=== PATIENT | male | born 1990 | race Caucasian/White ===

== ENCOUNTER 2023-11-01 11:26 | Emergency (ER) | payer OTHER, SELFPAY ==
[2023-11-01 11:30] VITALS: BP 143/98
--- NOTE | 2023-11-01 11:59 | ED.GENMED ---
History of Present Illness
General
Chief Complaint: Abdominal Pain
Source: patient
Time Seen by Provider: 11/01/23 11:53
Travel History
Have you had any contact with someone who has COVID-19?: No
Do you have any symptoms of coronavirus? Fever > 100 degrees, chills, cough, shortness of breath, sore throat, loss of taste or smell, muscle aches, or headache?: No
History of Present Illness
History of Present Illness:
33-year-old male with no significant past medical history presenting to the emergency department for evaluation of right upper quadrant abdominal pain that has been persistent since earlier this morning described to be a sharp stabbing pain,
nonradiating, worse with eating, mild nausea associated but no other alleviating factors. States that he has had similar pain before that waxes and wanes and usually notices it after he eats but states today seem to be a little bit more severe than
previous. He attempted some Pepto-Bismol without any relief. Denies any fevers, chills, rigors, urinary symptoms, bowel changes, vomiting, chest pain or shortness of breath or any other concerns. Social history was noted for vaping. Family
history noncontributory.
Past History
Past History
ED Past Medical History: None
ED Past Surgical History: Orthopedic
Social History
Tobacco: Vaping
Alcohol: Daily (1 beer daily)
Drug: None
Living: with family
Employment: Employed
Review of Systems
Review of Systems
All Other Systems: ROS reviewed and negative except as documented in HPI and ROS
Phy Exam
Physical Exam
Physical Exam:
GENERAL: Alert , appears mildly uncomfortable
EYE: clear conjunctiva b/l
HEAD: NCAT
ENT: o/p clr, mmm.
CARDIAC: Regular rate and rhythm .
LUNGS: Clear breath sounds bilaterally, no acute respiratory distress, no wheezes/rales/rhonchi
ABDOMEN: Soft, right upper quadrant tenderness to palpation, no r/g, no cvat
NEUROLOGICAL: Alert and oriented
SKIN: Warm and dry, skin intact.
MUSCULOSKELETAL: No edema, well perfused.
PSYCH: Normal and appropriate interaction.
Scores
Heart Failure Risk
Heart Failure Risk Score: Not Applicable
Heart Score for Chest Pain Patients
STEMI patient?: Not applicable
Withdrawal Assessment of Alcohol
Withdrawal Assessment Completed?: Not applicable
Course
Orders/Labs/Results
Orders:
Orders
11/01/23 11:59
US Abdomen Complete/Upper Urgent
Comment:
Reason For Exam: RUQ pain, worse with eating/palpation
11/01/23 12:19
Complete Blood Count/With Diff Urgent
Comprehensive Metabolic Panel Urgent
Lipase Urgent
11/01/23 13:27
Urinalysis Reflex To Culture Urgent
Date Specimen was Collected: 11/01/23
Time Specimen was Collected: 13:23
Abnormal Lab Results
11/01/23
12:19
Abs Immat Gran (auto) 0.1 H 10^3/uL
(0-0.05)
Absolute Neuts (auto) 9.6 H 10^3/uL
(1.4-6.5)
Absolute Lymphs (auto) 0.4 L 10^3/uL
(1.2-3.4)
Neutrophils % 90.7 H %
(42.2-75.2)
Lymphocytes % 4.2 L %
(20.5-51.1)
Sodium 134 L mmol/L
(135-145)
Glucose 107 H mg/dl
(70-99)
11/01/23 12:19
11/01/23 12:19
Vital Signs
Initial and Last Documented VS:
Initial Vital Signs
Temp Pulse Resp BP Pulse Ox
97.6 F 67 16 143/98 100
11/01/23 11:30 11/01/23 11:30 11/01/23 11:30 11/01/23 11:30 11/01/23 11:30
Last Documented Vital Signs
Temp Pulse Resp BP Pulse Ox
97.6 F 70 16 149/96 100
11/01/23 11:30 11/01/23 14:26 11/01/23 11:30 11/01/23 14:26 11/01/23 11:30
MDM/Problems Addressed
Differential Diagnosis Includes:
Cholecystitis, symptomatic cholelithiasis, GERD, gastritis, pancreatitis
MDM/Problems Addressed:
33-year-old male presenting the emergency department for evaluation of right upper quadrant abdominal pain, unrelieved with Pepto, has been experiencing this pain intermittently over an extended period of time but today more symptomatic and more
severe. Patient does have pretty clearly reproducible tenderness within the right upper quadrant with palpation. Will check labs including chemistry and lipase. Ultrasound of the abdomen ordered. Patient declining anything for pain or nausea.
*Radiology
Radiology exam reviewed: radiology read reviewed
*Pulse Oximetry
Patient hypoxic: no
*Critical Care Note
Total Time (30-74mins, 75-104mins- exclusive of procedures): Not Applicable
Patient Management
Escalation/DeEscalation of care consider admission/obs:
On reevaluation patient states his pain is fully resolved. His ultrasound does show cholelithiasis without evidence for acute cholecystitis. Patient's labs are otherwise unremarkable. No abnormal leukocytosis and liver function tests are within
normal limits. Given his improved pain combined with normal lab work I do feel it is reasonable for patient to continue his workup as an outpatient. I provided him with information for our general surgery team. Dietary modification/low-fat diet
advised. Patient is aware of return precautions to the emergency department but otherwise stable for discharge home.
ED Attending Note
-
Portions of this chart may have been created with voice recognition software.� Occasional wrong word or��sound alike� substitutions may have occurred due to the inherent limitations of voice recognition software.
Discharge Plan
Departure
Patient Disposition: Home (Routine Discharge)
Date of Disposition: 11/01/23
Time of Disposition: 14:12
Patient with high blood pressure during this ER visit?: Yes
Discharge Problem:
Cholelithiasis
Instructions: Gallstones (DC)
Referrals:
NONE,* [Family Provider] -
Donal Cardenas MD [Active] - (General Surgeon - Call for appointment)
Interventions
Interventions:
*Risk Screen - Suicide Last Done: 11/01/23 11:30
*General Assessment Last Done: 11/01/23 11:30
*Neglect/Abuse Screening Last Done: 11/01/23 11:30
*Nursing Disposition Last Done: 11/01/23 14:26
ZJ-[id number]-Dfglqdavir Assessment Last Done: 11/01/23 12:30
Discharge Date and Time
Discharge Date/Time: 11/01/23 14:26
Print Language: ETHIOPIAN
[2023-11-01 12:43] LABS: % Basophils 0.2 % (0-2); % Immature Granulocytes 0.5 % (0-0.5); % Lymphocytes 4.2 % (20.5-51.1); % Monocytes 4.4 % (1.7-9.3); % Neutrophils 90.7 % (42.2-75.2); Absolute Immature Granulocytes 0.1 10^3/uL (0-0.05); Absolute Lymphocytes 0.4 10^3/uL (1.2-3.4); Absolute Monocytes 0.5 10^3/uL (0.1-0.6); Absolute Neutrophils 9.6 10^3/uL (1.4-6.5); Hematocrit 44.3 % (39.0-52.0); Mean Corp Hgb Conc. 33.9 g/dL (33.0-37.0); Mean Corpuscular Hgb 27.7 pg (27.0-31.0); Mean Corpuscular Volume 81.9 fL (80.0-94.0); Mean Platelet Volume 9.6 fL (7.4-10.4); Nucleated Red Blood Cells % 0 % (-); Platelet Count 209 10^3/uL (130-400); Red Blood Cell Count 5.41 10^6/uL (4.70-6.10); Red Cell Dist. Width 12.7 % (11.5-14.5); White Blood Cell Count 10.6 10^3/uL (4.8-10.8)
[2023-11-01 12:58] LABS: ALT (SGPT) 29 U/L (0-50); AST (SGOT) 33 U/L (17-59); Albumin 4.7 g/dl (3.5-5.0); Alkaline Phosphatase 70 U/L (38-126); Blood Urea Nitrogen 15 mg/dl (9-20); Calcium 9.7 mg/dl (8.4-10.2); Carbon Dioxide 29 mmol/L (22-30); Chloride 99 mmol/L (98-107); Glucose 107 mg/dl (70-99); Sodium 134 mmol/L (135-145); Total Bilirubin 0.6 mg/dl (0.2-1.3); Total Protein 7.5 g/dl (6.3-8.2); eGFR > 60.00
[2023-11-01 13:40] LABS: Urine Albumin Negative (Neg - Trace); Urine Bilirubin Negative (Negative); Urine Character Clear (Clear); Urine Color Yellow; Urine Glucose Negative (Negative); Urine Ketone Negative (Negative); Urine Leukocyte Negative (Negative); Urine Nitrite Negative (Negative); Urine Occult Blood Negative (Negative); Urine Specific Gravity 1.015 (<1.030); Urine Urobilinogen Negative (Neg - 1+)
[2023-11-01 13:41] VITALS: BP 149/96
[2023-11-01 13:41] LABS: Lipase 185 U/L (23-300)
[2023-11-01 14:26] VITALS: BP 149/96
== END 2023-11-01 14:26 | disposition home or self-care (01) ==
LOC: EMR 11:26
PROVIDERS: Physician Assistant Medical; EMERGENCY PHYSICIAN Emergency Medicine
DX: K80.20 Calculus of gallbladder without cholecystitis without obstruction (principal); R03.0 Elevated blood-pressure reading, without diagnosis of hypertension; F17.290 Nicotine dependence, other tobacco product, uncomplicated
CPT/HCPCS: 99284; 76700; 80053; 81003; 83690; 85025